=== PATIENT | male | born 1955 | race American Indian/Alaskan Native ===

== ENCOUNTER 2018-01-04 14:20 | Emergency (ER) | payer MEDICARE ==
[2018-01-04 13:29] LABS: Blood Urea Nitrogen 14 mg/dL (9-20)
--- NOTE | 2018-01-04 14:25 | Cat Scan Report ---
CTA CHEST INDICATION: Other chest pain, shortness of breath. COMPARISON: None similar. FINDINGS: Chest CTA performed following intravenous administration of 100 cc of Omnipaque 350. Rotational MIP's also obtained. Mild cardiomegaly with silhouette slightly exaggerated due to pericardial fat pads. No suspicious pulmonary arterial filling defects. Nonaneurysmal aorta, though lumen inadequately opacified. Slight aortic arch calcifications. Patent central airway. No pericardial effusion or size significant adenopathy. Normal thyroid. Small right pleural effusion, approximately 2 cm in AP thickness at the right lung base with slight underlying atelectasis and a possible 3 mm calcified granuloma as on axial image 101, series 2. No significant left pleural effusion with a tiny granuloma at the extreme left lung base possible as on axial series 3, image 223. Slight bibasilar atelectasis/scarring. Slight nonspecific distal esophageal prominence/thickening. Mild contrast reflux into the hepatic veins noted. Slight bilateral adrenal prominence/possible hyperplasia. Mild multilevel imaged spinal degenerative changes, greatest lower thoracic and lower cervical. CONCLUSION: Small right pleural effusion and few other incidental findings, as above, without CT evidence of pulmonary embolism. Please correlate. Thank you for the opportunity to participate in this patient's care.
--- NOTE | 2018-01-04 17:36 | Emergency Department Report ---
ED General Adult HPI - General Chief complaint: Extremity Problem,Nontraumatic Source: patient Mode of arrival: Wheelchair Limitations: No Limitations - History of Present Illness Initial comments: Mr. Doherty is a 62-year-old male with history of hypertension or diabetes. He also has a history of CVA. He's had right leg swelling for the past 3 months. He denies chest pain or shortness of breath. He is referred from outpatient radiology department. He has a popliteal DVT. His primary physician was unable to be contacted. When he was referred to the ED for treatment. His primary physician is Dr. Ady Buckley. - Related Data Allergies Allergy/AdvReac Type Severity Reaction Status Date / Time No Known Allergies Allergy Verified 01/04/18 14:51 ED Review of Systems ROS: Stated complaint: Other details as noted in HPI Comment: All other systems reviewed and negative Constitutional: denies: fever, malaise Respiratory: denies: cough Cardiovascular: denies: chest pain, dyspnea on exertion ED Past Medical Hx - Past Medical History Previous Medical History?: Yes Hx Hypertension: Yes Hx Diabetes: Yes Additional medical history: HLD - Surgical History Past Surgical History?: No - Social History Smoking Status: Never Smoker Substance Use Type: Alcohol ED Physical Exam - General Limitations: No Limitations General appearance: alert, in no apparent distress - Head Head exam: Present: atraumatic, normocephalic - Eye Eye exam: Present: normal appearance - ENT ENT exam: Present: mucous membranes moist - Neck Neck exam: Present: normal inspection - Respiratory Respiratory exam: Present: normal lung sounds bilaterally. Absent: respiratory distress, wheezes, rales, rhonchi - Cardiovascular Cardiovascular Exam: Present: regular rate, normal rhythm, normal heart sounds. Absent: systolic murmur, diastolic murmur, rubs, gallop - GI/Abdominal GI/Abdominal exam: Present: soft, normal bowel sounds. Absent: distended, tenderness - Rectal Rectal exam: Present: deferred - Extremities Exam Extremities exam: Present: pedal edema, other (warm right lower extremity, pedal edema noted. Edema noted to the knee. Pitting edema. nurse able to doppler pulse) - Back Exam Back exam: Present: normal inspection - Neurological Exam Neurological exam: Present: alert, oriented X3 - Psychiatric Psychiatric exam: Present: normal affect, normal mood - Skin Skin exam: Present: warm, dry, intact, normal color. Absent: rash ED Course Vital Signs 01/04/18 14:20 Temperature 98.5 F Pulse Rate 64 Respiratory 16 Rate Blood Pressure 169/122 O2 Sat by Pulse 98 Oximetry ED Medical Decision Making - Lab Data Result diagrams: 01/04/18 13:15 - Medical Decision Making Mr. Doherty has right-sided popliteal DVT. I spoke extensively with Dr. Cooper applications trainer physician for Dr. Buckley. Dr. Buckley has initiated Xarelto therapy. Patient did fill this medication. He is currently taking the medication. He understands to follow with Dr. Buckley as soon as possible. Dr. Cooper is aware that patient does have DVT. Dr. Cooper faxed recent H&P from yesterday's evaluation. Xarelto is listed on his medication list. This medication was started yesterday according to the document faxed to me. Dr. Pedro did suspect DVT. Critical care attestation.: If time is entered above; I have spent that time in minutes in the direct care of this critically ill patient, excluding procedure time. ED Disposition Clinical Impression: DVT, popliteal, acute Disposition: DC-01 TO HOME OR SELFCARE Is pt being admited?: No Does the pt Need Aspirin: No Condition: Stable Instructions: Deep Venous Thrombosis (ED) Additional Instructions: Please see Dr. Buckley next week. You will need to take a blood thinning medication for 3-6 months. Referrals: ADY BUCKLEY MD [Primary Care Provider] - 3-5 Days Time of Disposition: 17:37
[2018-01-04 17:53] VITALS: BP 156/112
== END 2018-01-04 17:59 | disposition home or self-care (01) ==
LOC: EDSTATUS 14:20 → ED 14:20
DX: I82.431 Acute embolism and thrombosis of right popliteal vein (principal); I10 Essential (primary) hypertension; E11.9 Type 2 diabetes mellitus without complications
CPT/HCPCS: 36415; 71275; 82565; 84520; 93970; 99284; Q9967